=== PATIENT | female | born 1990 | race Caucasian/White ===

== ENCOUNTER 2021-01-26 06:12 | Emergency (ER) | payer OTHER ==
[~2021-01-26] VITALS: Ht 162.6 cm; Wt 59.0 kg
[~2021-01-26 06:12] MED LIST: ALBU0.0912 INH
[2021-01-26 06:18] VITALS: BP 115/63
--- NOTE | 2021-01-26 06:23 | NUR ---
TRIAGED IN TENT
[2021-01-26] MEDS ORDERED: NACL 0.9% 1,000 ML IV ONE (06:35)
--- NOTE | 2021-01-26 06:45 | NUR ---
T0 BED 8, AMBULATORY WITH C/O COUGH AND SORE THROAT X 5 DAYS
--- NOTE | 2021-01-26 06:51 | NUR ---
Dr. Hurst examining patient.
[2021-01-26] MEDS ORDERED: KETOROLAC 30 MG/ML VIAL IVP ONE (07:00)
[2021-01-26] MEDS ORDERED: IBUP-2213 PO (07:05)
[2021-01-26] MEDS ORDERED: AZIT250T4 PO (07:05)
[2021-01-26] MEDS ORDERED: PRED20TA5 PO (07:05)
[2021-01-26 08:40] VITALS: BP 114/68
--- NOTE | 2021-01-26 08:41 | NUR ---
Patient discharged with v/s stable. Written and verbal after care instructions given and explained. Patient alert, oriented and verbalized understanding of instructions. Ambulatory with steady gait. All questions addressed prior to discharge. ID band removed. Patient advised to follow up with PMD. Rx of Ibuprofen, Prednisone, and Azithromax given. Patient educated on indication of medication including possible reaction and side effects. Opportunity to ask questions provided and answered.
== END 2021-01-26 08:41 | disposition home or self-care (01) ==
LOC: MED 06:12
DX: J02.9 Acute pharyngitis, unspecified (principal); M54.2 Cervicalgia; J45.909 Unspecified asthma, uncomplicated; E07.9 Disorder of thyroid, unspecified; Z79.899 Other long term (current) drug therapy
CPT/HCPCS: 81002; 96361; 96374; 99283; J1885; J7030

== ENCOUNTER 2021-08-07 04:39 | Emergency (ER) | payer OTHER ==
[~2021-08-07] VITALS: Ht 162.6 cm; Wt 62.6 kg
[~2021-08-07 04:39] MED LIST changes: +AZIT250T4 PO; +IBUP-2213 PO; +PRED20TA5 PO
[2021-08-07 04:40] VITALS: BP 125/77
--- NOTE | 2021-08-07 04:42 | NUR ---
Dr. Rosas at triage to exam patient.
--- NOTE | 2021-08-07 04:46 | NUR ---
Patient BIB by family from home. C/O upper back pain, numbness left arm x today. Hx: HLD, Hyperthyroid A/O,X4, left upper back pain, pain rate 8/10, numbness left arm, no weakness.
[2021-08-07] MEDS ORDERED: ACETAMINOPHEN EXTRA STRENGTH 500 MG TAB PO ONE (04:50)
[2021-08-07 05:10] VITALS: BP 125/77
--- NOTE | 2021-08-07 05:10 | NUR ---
Patient discharged with v/s stable. Written and verbal after care instructions given and explained. Patient verbalized understanding. Ambulatory with steady gait. All questions addressed prior to discharge. Advised to follow up with PMD.
== END 2021-08-07 05:10 | disposition home or self-care (01) ==
LOC: MED 04:39
DX: R20.2 Paresthesia of skin (principal); J45.909 Unspecified asthma, uncomplicated; E07.9 Disorder of thyroid, unspecified; Z79.899 Other long term (current) drug therapy
CPT/HCPCS: 93005; 99283

== ENCOUNTER 2022-08-31 21:21 | Emergency (ER) | payer OTHER ==
[~2022-08-31] VITALS: Ht 162.6 cm; Wt 56.7 kg
[2022-08-31 21:30] VITALS: BP 110/85
--- NOTE | 2022-08-31 21:33 | NUR ---
TO LOBBY A/W BED AMBULATORY
[2022-08-31] MEDS ORDERED: CLIN300C52 PO (23:22)
[2022-08-31] MEDS ORDERED: DEXAMETHASONE 10 MG/ML VIAL IM ONE (23:25)
[2022-08-31 23:45] VITALS: BP 110/85
--- NOTE | 2022-08-31 23:45 | NUR ---
Patient discharged with v/s stable. Written and verbal after care instructions given and explained. Patient alert, oriented and verbalized understanding of instructions. Ambulatory with steady gait. All questions addressed prior to discharge. ID band removed. Patient advised to follow up with PMD. Rx of CLINDAMYCIN given. Patient educated on indication of medication including possible reaction and side effects. Opportunity to ask questions provided and answered.
== END 2022-08-31 23:45 | disposition home or self-care (01) ==
LOC: MED 21:21
DX: J36 Peritonsillar abscess (principal); J45.909 Unspecified asthma, uncomplicated; E03.9 Hypothyroidism, unspecified; Z79.899 Other long term (current) drug therapy
CPT/HCPCS: 96372; 99283; J1100

== ENCOUNTER 2023-12-04 19:05 | Emergency (ER) | payer OTHER ==
[~2023-12-04] VITALS: Ht 162.6 cm; Wt 59.0 kg
[~2023-12-04 19:05] MED LIST changes: +CLIN300C52 PO
[2023-12-04 19:08] VITALS: BP 107/72; PULSE 67; RESP 18; TEMP 97.5; O2SAT 100
[2023-12-04 21:09] LABS: BASOPHILS % (AUTO) 0.3 % (0.0-2.0); EOSINOPHILS # (AUTO) 0.2 K/uL (0-0.4); EOSINOPHILS % (AUTO) 1.6 % (0.0-4.0); HEMATOCRIT 38.7 % (36-48); HEMOGLOBIN 12.5 g/dL (12.0-16.0); LYMPHOCYTES # (AUTO) 1.7 K/uL (2.5-16.5); LYMPHOCYTES % (AUTO) 13.7 % (20.5-51.1); MEAN CORPUSCULAR HEMOGLOBIN 29 pg (27-31); MEAN CORPUSCULAR HGB CONC 32 g/dL (33-37); MEAN CORPUSCULAR VOLUME 89.9 fL (80-94); MONOCYTES # (AUTO) 0.5 K/uL (0.8-1.0); MONOCYTES % (AUTO) 3.6 % (1.7-9.3); NEUTROPHILS # (AUTO) 10.3 K/uL (1.8-7.7); NEUTROPHILS % (AUTO) 80.8 % (42.2-75.2); PLATELET COUNT (AUTO) 215 K/uL (140-450); RED CELL DISTRIBUTION WIDTH 14.5 % (11.6-13.7); WHITE BLOOD COUNT (AUTO) 12.7 K/uL (4.8-10.8)
[2023-12-04 21:19] LABS: ANION GAP 16.7 (8-16); CALCIUM 8.7 mg/dL (8.5-10.1); CARBON DIOXIDE 21.7 mmol/L (21-32); CREATININE 0.7 mg/dL (0.6-1.3); POTASSIUM 3.4 mmol/L (3.5-5.1)
[2023-12-05 02:28] VITALS: BP 95/62; PULSE 85; RESP 14; TEMP 97.5; O2SAT 98
== END 2023-12-05 02:28 | disposition home or self-care (01) ==
LOC: MED 19:05
DX: R55 Syncope and collapse (principal); S91.114A Laceration without foreign body of right lesser toe(s) without damage to nail, initial encounter; S00.03XA Contusion of scalp, initial encounter; R56.9 Unspecified convulsions; J45.909 Unspecified asthma, uncomplicated; Z86.39 Personal history of other endocrine, nutritional and metabolic disease; Z79.1 Long term (current) use of non-steroidal anti-inflammatories (NSAID); Z79.2 Long term (current) use of antibiotics; Z79.899 Other long term (current) drug therapy; W18.30XA Fall on same level, unspecified, initial encounter; Y93.89 Activity, other specified; Y92.89 Other specified places as the place of occurrence of the external cause; Y99.8 Other external cause status
CPT/HCPCS: 36415; 70450; 80048; 81025; 85025; 90471; 90715; 93005; 99285